=== PATIENT | female | born 1955 | race Caucasian/White ===

== ENCOUNTER 2017-03-29 14:43 | Outpatient (CLI) | payer SELFPAY | END 2017-03-29 14:44 | disposition critical access hospital (66) | LOC: EMS 14:43 | PROVIDERS: ATTEND Surgery | DX: R53.83 Other fatigue (principal); K62.5 Hemorrhage of anus and rectum | CPT/HCPCS: A0425; A0429 ==

== ENCOUNTER 2020-07-22 08:00 | Outpatient (CLI) | payer MEDICAID ==
[2020-07-22 15:02] LABS: BASOPHILS % (AUTO) 0.4 %; EOSINOPHILS # (AUTO) 0.1 10^3/uL (0.0-0.7); EOSINOPHILS % (AUTO) 2.2 %; LYMPHOCYTES # (AUTO) 1.7 10^3/uL (1.5-3.5); LYMPHOCYTES % (AUTO) 32.6 %; MEAN CORPUSCULAR HEMOGLOBIN 36.7 pg (27.0-31.0); MEAN CORPUSCULAR HGB CONC 34.3 g/dL (32.0-36.0); MEAN CORPUSCULAR VOLUME 106.8 fL (81.0-99.0); MEAN PLATELET VOLUME 11.3 fL (7.9-10.8); MONOCYTES # (AUTO) 0.7 10^3/uL (0.0-1.0); MONOCYTES % (AUTO) 13.2 %; NEUTROPHILS # (AUTO) 2.6 10^3/uL (1.5-6.6); NEUTROPHILS % (AUTO) 51.2 %; PLT - PLATELET COUNT 88 10^3/uL (130-450); RED BLOOD COUNT 4.09 10^6/uL (4.20-5.40); RED CELL DISTRIBUTION WIDTH 13.9 % (12.0-15.0); WHITE BLOOD COUNT 5.1 x10^3/uL (4.8-10.8)
[2020-07-22 15:17] LABS: CALCIUM 9.4 mg/dL (8.5-10.3); CREATININE 0.6 mg/dL (0.4-1.0)
== END 2020-07-22 23:59 | disposition home or self-care (01) ==
LOC: LAB.S 08:00
PROVIDERS: ATTEND Physician Assistant Medical
DX: I10 Essential (primary) hypertension (principal)
CPT/HCPCS: 36415; 80050

== ENCOUNTER 2020-09-10 11:27 | Outpatient (CLI) | payer MEDICARE, MEDICAID ==
[2020-09-10 14:59] LABS: BASOPHILS % (AUTO) 0.5 %; EOSINOPHILS # (AUTO) 0.2 10^3/uL (0.0-0.7); HCT - HEMATOCRIT 42.3 % (37.0-47.0); HGB - HEMOGLOBIN 14.2 g/dL (12.0-16.0); LYMPHOCYTES # (AUTO) 2.6 10^3/uL (1.5-3.5); LYMPHOCYTES % (AUTO) 44.6 %; MEAN CORPUSCULAR HEMOGLOBIN 35.1 pg (27.0-31.0); MEAN CORPUSCULAR HGB CONC 33.6 g/dL (32.0-36.0); MEAN CORPUSCULAR VOLUME 104.4 fL (81.0-99.0); MEAN PLATELET VOLUME 11.6 fL (7.9-10.8); MONOCYTES # (AUTO) 0.7 10^3/uL (0.0-1.0); MONOCYTES % (AUTO) 11.3 %; NEUTROPHILS # (AUTO) 2.4 10^3/uL (1.5-6.6); NEUTROPHILS % (AUTO) 40.4 %; PLT - PLATELET COUNT 128 10^3/uL (130-450); RED BLOOD COUNT 4.05 10^6/uL (4.20-5.40); RED CELL DISTRIBUTION WIDTH 12.9 % (12.0-15.0); WHITE BLOOD COUNT 5.9 x10^3/uL (4.8-10.8)
[2020-09-10 16:15] LABS: ALBUMIN 3.9 g/dL (3.2-5.5); ALKALINE PHOSPHATASE 57 IU/L (42-121); ALT ALANINE AMINOTRANSFERASE 17 IU/L (10-60); AST ASPARTATE AMINOTRANSFERASE 25 IU/L (10-42); BILIRUBIN,TOTAL 0.5 mg/dL (0.2-1.0); BUN - BLOOD UREA NITROGEN 19 mg/dL (6-20); CALCIUM 10.2 mg/dL (8.5-10.3); CARBON DIOXIDE - CO2 25 mmol/L (21-32); CHLORIDE 105 mmol/L (101-111); CHOL/HDL RATIO 4.4 (<4.4); CHOLESTEROL 223 mg/dL; CREATININE 0.7 mg/dL (0.4-1.0); GFR - MDRD 84 (>89); GLUCOSE 122 mg/dL (70-100); HDL CHOLESTEROL 51 mg/dL; LDL CHOLESTEROL,CALCULATED 149 mg/dL; LDL/HDL RATIO 2.9 (<4.4); POTASSIUM 3.8 mmol/L (3.5-5.0); SODIUM 141 mmol/L (135-145); TOTAL PROTEIN 7.8 g/dL (6.7-8.2); TRIGLYCERIDES 116 mg/dL; VLDL CHOLESTEROL 23 mg/dL
[2020-09-10 16:24] LABS: THYROID STIMULATING HORMONE 1.03 uIU/mL (0.34-5.60)
== END 2020-09-10 11:28 | disposition home or self-care (01) ==
LOC: LAB.S 11:27
PROVIDERS: ATTEND Registered Nurse
DX: I10 Essential (primary) hypertension (principal); Z72.0 Tobacco use; F32.9 Major depressive disorder, single episode, unspecified; F41.9 Anxiety disorder, unspecified
CPT/HCPCS: 36415; 80053; 80061; 83721; 84443; 85025

== ENCOUNTER 2020-11-24 08:26 | Outpatient (CLI) | payer MEDICARE, MEDICAID | END 2020-11-24 08:27 | disposition short-term general hospital (02) | LOC: EMS 08:26 | DX: R06.09 Other forms of dyspnea (principal); R11.2 Nausea with vomiting, unspecified; R07.89 Other chest pain; R05 Cough; R68.83 Chills (without fever) | CPT/HCPCS: A0425; A0429 ==

== ENCOUNTER 2022-07-11 08:00 | Outpatient (CLI) | payer MEDICARE, MEDICAID | END 2022-07-11 08:01 | disposition critical access hospital (66) | LOC: EMS 08:00 | DX: R06.02 Shortness of breath (principal) | CPT/HCPCS: A0425; A0427 ==

== ENCOUNTER 2022-07-11 08:33 | Emergency (ER) | payer MEDICARE, MEDICAID ==
[2022-07-11] MEDS ORDERED: ALBUTEROL NEB 2.5 MG/3 ML INH STA (08:47)
[2022-07-11] MEDS ORDERED: SODIUM CHLORIDE 0.9% 1,000 ML IV STA (08:47)
--- NOTE | 2022-07-11 08:54 | ED Physician Documentation ---
PD HPI DYSPNEA - Stated complaint Stated Complaint: SOA - History obtained from History obtained from: Patient, EMS - History of Present Illness Timing - onset: How many days ago (4) Timing - onset during: Rest Timing - duration: Days (4) Timing - details: Gradual onset, Still present Inciting event(s): URI Improved by: O2, Inhaler/neb, Rest Worsened by: Exertion Associated symptoms: Wheezing, Chest pain / discomfort Similar symptoms before: Diagnosis (COPD CHF) Recently seen: Not recently seen - Additional information Additional information: Trena Trujillo is a 66-year-old female who called the ambulance this morning when she developed increasing dyspnea for the past 4 days.She has a history of COPD and CHF with IHSS and mitral valve stenosis. She was last admitted into the hospital here in January 2022 with pneumonia and CHF. She left the hospital then with oxygen she is not currently using oxygen. She was picked up from her house unable to give adequate history she had a partner at the home who had called and there are no medications and no history available. The patient is in distress and unable to provide details of history. 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 : None HEENT: Other Psych: None Musculoskeletal: None Derm: None - Past Surgical History Past Surgical History: Yes /HORTICULTURAL AGENT: Hysterectomy HEENT: Cataracts - Present Medications Home Medications: Ambulatory Orders Medication Instructions Recorded Confirmed Ibuprofen [Advil] 200 mg PO Q6H PRN 03/30/17 01/25/22 Metoprolol Succinate 100 mg PO DAILY 01/25/22 01/25/22 Fluticasone/Salmeterol [Advair Hfa 8 gm IH BID #60 applic 01/27/22 115-21 Mcg Inhaler] Folic Acid 1 mg PO DAILY #0 tablet 01/27/22 Furosemide [Lasix] 20 mg PO MOWEFR #0 01/27/22 01/25/22 Ipratropium/Albuterol [Duoneb] 3 ml INH QID #120 pkt 01/27/22 Nebulizer Accessories [Adult 1 each MC QID #2 each 01/27/22 Aerosol Mask] Nebulizer and Compressor 1 each MC QID #1 each 01/27/22 [Compressor Nebulizer System] Nicotine [Nicotrol Ns] 10 mg NS TID #1 kit 01/27/22 guaiFENesin [Mucinex] 600 mg PO BID #30 tablet 01/27/22 levoFLOXacin [Levofloxacin] 750 mg PO DAILY #3 tablet 01/27/22 - Allergies Allergies/Adverse Reactions: Allergies Allergy/AdvReac Type Severity Reaction Status Date / Time No Known Drug Allergies Allergy Verified 01/24/22 13:21 - Social History Does the pt smoke?: Yes Smoking Status: Current every day smoker Does the pt drink ETOH?: Yes Does the pt have substance abuse?: No - Immunizations Immunizations are current?: Yes - POLST Patient has POLST: No PD ED PE NORMAL - Vitals Vital signs reviewed: Yes (tachy and hypoxic) - General General: Well developed/nourished, Other (66 y/o female struggling for breath will stop to answer questions with one word. She appears acutely aggitated ) - HEENT HEENT: Atraumatic, PERRL, EOMI - Neck Neck: Supple, no meningeal sign, No bony TTP - Cardiac Cardiac: Other (tachy with 3/6 holosystolic murmer at LSB) - Respiratory Respiratory: Other (diminished breath sounds effort to breath is strong) - Abdomen Abdomen: Soft, Non tender - Back Back: No CVA TTP, No spinal TTP - Derm Derm: Normal color, Warm and dry, No rash - Extremities Extremities: No deformity, No edema, Other (ankles are thick but without pitting .) - Neuro Neuro: Alert and oriented X 3, lumber grader 2-12 intact, No motor deficit, No sensory deficit, Normal speech Eye Opening: Spontaneous Motor: Obeys Commands Verbal: Oriented GCS Score: 15 - Psych Psych: Normal mood, Normal affect Results - Vitals Vitals: Vital Signs - 24 hr 07/11/22 07/11/22 07/11/22 08:54 09:01 09:18 Temperature 35.9 C L Heart Rate 120 H 117 H 111 H Respiratory 26 H 20 Rate Blood Pressure 121/80 113/72 O2 Saturation 71 L 100 07/11/22 07/11/22 07/11/22 09:33 09:48 09:52 Temperature Heart Rate 106 H 106 H 104 H Respiratory 26 H 32 H 24 Rate Blood Pressure 106/69 103/70 O2 Saturation 98 95 07/11/22 07/11/22 07/11/22 10:25 10:31 10:45 Temperature 34.5 C L 35.6 C L Heart Rate 118 H 109 H Respiratory 24 26 H Rate Blood Pressure 127/84 H 108/71 O2 Saturation 100 100 07/11/22 07/11/22 07/11/22 11:00 11:15 11:27 Temperature 35.8 C L 35.8 C L Heart Rate 106 H 105 H 98 Respiratory 26 H 20 Rate Blood Pressure 102/63 113/61 O2 Saturation 100 100 07/11/22 07/11/22 07/11/22 11:30 11:45 12:00 Temperature 35.8 C L 35.9 C L 35.9 C L Heart Rate 101 H 100 101 H Respiratory 20 24 19 Rate Blood Pressure 108/66 98/70 96/61 O2 Saturation 98 99 99 07/11/22 07/11/22 07/11/22 12:15 12:30 12:45 Temperature 36.1 C L 36.2 C L 36.4 C L Heart Rate 109 H 99 94 Respiratory 22 17 19 Rate Blood Pressure 134/86 H 105/67 101/67 O2 Saturation 98 100 99 07/11/22 07/11/22 07/11/22 13:00 13:15 13:30 Temperature 36.4 C L 36.4 C L 36.7 C Heart Rate 94 94 100 Respiratory 17 18 19 Rate Blood Pressure 106/63 101/60 114/70 O2 Saturation 100 100 100 07/11/22 07/11/22 07/11/22 13:45 14:00 14:15 Temperature 36.7 C 36.8 C 36.8 C Heart Rate 91 89 88 Respiratory 18 20 18 Rate Blood Pressure 105/64 90/58 L 92/59 L O2 Saturation 100 99 100 07/11/22 07/11/22 07/11/22 14:30 14:45 15:30 Temperature 36.8 C 36.8 C Heart Rate 90 93 109 H Respiratory 18 18 Rate Blood Pressure 124/64 113/68 O2 Saturation 100 99 07/11/22 16:15 Temperature Heart Rate 106 H Respiratory 21 Rate Blood Pressure 99/59 L O2 Saturation 100 Oxygen O2 Source [] Room air O2 Source [] Room air O2 Source BIPAP - EKG (time done) 0841 Rate: Rate (enter#) (123) Rhythm: Other (unable to determine atrial focus doubt aflutter) Ischemia: Q waves, Other (ST depression and T wave inversions in limb leads ) Compare to prior EKG: Changed from prior EKG (SPT 01-24-22 rate has increased) Computer interpretation: Disagree with computer (I do not see evidence of atrial flutter) 0914 Rate: Rate (enter#) (118) Rhythm: Sinus tachycardia Ischemia: Q waves Compare to prior EKG: Unchanged from prior EKG (SPT earlier today no sig main es) Computer interpretation: Agree with computer - Labs Labs: Laboratory Tests 07/11/22 07/11/22 07/11/22 08:40 08:45 08:45 WBC 13.4 H RBC 2.99 L Hgb 10.1 L Hct 32.1 L MCV 107.4 H MCH 33.8 H MCHC 31.5 L RDW 15.9 H Plt Count 248 MPV 10.4 Neut # (Auto) 9.0 H Lymph # (Auto) 2.8 [place] # (Auto) 1.2 H Eos # (Auto) 0.2 Baso # (Auto) 0.1 Absolute Nucleated RBC 0.03 Nucleated RBC % 0.2 Bld Gas Analysis Time Sample Site ABG pH ABG pCO2 ABG pO2 ABG HCO3 ABG Total CO2 ABG O2 Saturation ABG Base Excess Álvaro Test VBG pH VBG pCO2 VBG pO2 VBG HCO3 VBG Total CO2 VBG O2 Saturation VBG Base Excess O2 Delivery Device FiO2 EPAP IPAP Sodium 139 Potassium 3.2 L Chloride 103 Carbon Dioxide 27 Anion Gap 9.0 BUN 15 Creatinine 0.7 Estimated GFR (MDRD) 83 L Glucose 228 H Lactic Acid Calcium 8.7 Magnesium 1.3 L Total Bilirubin 1.0 AST 29 ALT 14 Alkaline Phosphatase 62 Troponin I High Sens B-Natriuretic Peptide Total Protein 7.8 Albumin 4.1 Globulin 3.7 Albumin/Globulin Ratio 1.1 Lipase 29 Nasal Adenovirus (PCR) NOT DETECTED Nasal B. parapertussis DNA (PCR) NOT DETECTED Nasal Coronavir 229E PCR NOT DETECTED Nasal Coronavir HKU1 PCR NOT DETECTED Nasal Coronavir NL63 PCR NOT DETECTED Nasal Coronavir OC43 PCR NOT DETECTED Nasal Enterovir/Rhinovir PCR NOT DETECTED Nasal Influenza B PCR NOT DETECTED Nasal Influenza A PCR NOT DETECTED Nasal Parainfluen 1 PCR NOT DETECTED Nasal Parainfluen 2 PCR NOT DETECTED Nasal Parainfluen 3 PCR NOT DETECTED Nasal Parainfluen 4 PCR NOT DETECTED Nasal RSV (PCR) NOT DETECTED Nasal B.pertussis DNA PCR NOT DETECTED Nasal C.pneumoniae (PCR) NOT DETECTED Felix Human Metapneumo PCR NOT DETECTED Nasal M.pneumoniae (PCR) NOT DETECTED Nasal SARS-CoV-2 (PCR) NOT DETECTED Stl Occult Blood (IFOB) Ethyl Alcohol < 5.0 07/11/22 07/11/22 07/11/22 08:45 08:45 08:45 WBC RBC Hgb Hct MCV MCH MCHC RDW Plt Count MPV Neut # (Auto) Lymph # (Auto) [place] # (Auto) Eos # (Auto) Baso # (Auto) Absolute Nucleated RBC Nucleated RBC % Bld Gas Analysis Time Sample Site ABG pH ABG pCO2 ABG pO2 ABG HCO3 ABG Total CO2 ABG O2 Saturation ABG Base Excess Álvaro Test VBG pH 7.166 L VBG pCO2 70.2 H VBG pO2 43.5 VBG HCO3 24.8 VBG Total CO2 27.0 VBG O2 Saturation 66.5 VBG Base Excess -4.7 L O2 Delivery Device FiO2 EPAP IPAP Sodium Potassium Chloride Carbon Dioxide Anion Gap BUN Creatinine Estimated GFR (MDRD) Glucose Lactic Acid 2.1 Calcium Magnesium Total Bilirubin AST ALT Alkaline Phosphatase Troponin I High Sens B-Natriuretic Peptide 314 H Total Protein Albumin Globulin Albumin/Globulin Ratio Lipase Nasal Adenovirus (PCR) Nasal B. parapertussis DNA (PCR) Nasal Coronavir 229E PCR Nasal Coronavir HKU1 PCR Nasal Coronavir NL63 PCR Nasal Coronavir OC43 PCR Nasal Enterovir/Rhinovir PCR Nasal Influenza B PCR Nasal Influenza A PCR Nasal Parainfluen 1 PCR Nasal Parainfluen 2 PCR Nasal Parainfluen 3 PCR Nasal Parainfluen 4 PCR Nasal RSV (PCR) Nasal B.pertussis DNA PCR Nasal C.pneumoniae (PCR) Felix Human Metapneumo PCR Nasal M.pneumoniae (PCR) Nasal SARS-CoV-2 (PCR) Stl Occult Blood (IFOB) Ethyl Alcohol 07/11/22 07/11/22 07/11/22 08:45 08:53 09:17 WBC RBC Hgb Hct MCV MCH MCHC RDW Plt Count MPV Neut # (Auto) Lymph # (Auto) [place] # (Auto) Eos # (Auto) Baso # (Auto) Absolute Nucleated RBC Nucleated RBC % Bld Gas Analysis Time 0926 Sample Site RIGHT RADIAL ABG pH 7.30 L ABG pCO2 47 H ABG pO2 93 ABG HCO3 22.2 ABG Total CO2 23.6 ABG O2 Saturation 96 ABG Base Excess -4.3 L Álvaro Test POSITIVE VBG pH VBG pCO2 VBG pO2 VBG HCO3 VBG Total CO2 VBG O2 Saturation VBG Base Excess O2 Delivery Device BiPAP FiO2 40.00 EPAP 5 IPAP 20 Sodium Potassium Chloride Carbon Dioxide Anion Gap BUN Creatinine Estimated GFR (MDRD) Glucose Lactic Acid Calcium Magnesium Total Bilirubin AST ALT Alkaline Phosphatase Troponin I High Sens 17.0 H* B-Natriuretic Peptide Total Protein Albumin Globulin Albumin/Globulin Ratio Lipase Nasal Adenovirus (PCR) Nasal B. parapertussis DNA (PCR) Nasal Coronavir 229E PCR Nasal Coronavir HKU1 PCR Nasal Coronavir NL63 PCR Nasal Coronavir OC43 PCR Nasal Enterovir/Rhinovir PCR Nasal Influenza B PCR Nasal Influenza A PCR Nasal Parainfluen 1 PCR Nasal Parainfluen 2 PCR Nasal Parainfluen 3 PCR Nasal Parainfluen 4 PCR Nasal RSV (PCR) Nasal B.pertussis DNA PCR Nasal C.pneumoniae (PCR) Felix Human Metapneumo PCR Nasal M.pneumoniae (PCR) Nasal SARS-CoV-2 (PCR) Stl Occult Blood (IFOB) POSITIVE A Ethyl Alcohol 07/11/22 11:13 WBC RBC Hgb Hct MCV MCH MCHC RDW Plt Count MPV Neut # (Auto) Lymph # (Auto) [place] # (Auto) Eos # (Auto) Baso # (Auto) Absolute Nucleated RBC Nucleated RBC % Bld Gas Analysis Time 1119 Sample Site RIGHT RADIAL ABG pH 7.24 L ABG pCO2 54 H ABG pO2 79 L ABG HCO3 22.5 ABG Total CO2 24.2 ABG O2 Saturation 93 L ABG Base Excess -5.0 L Álvaro Test POSITIVE VBG pH VBG pCO2 VBG pO2 VBG HCO3 VBG Total CO2 VBG O2 Saturation VBG Base Excess O2 Delivery Device BiPAP FiO2 40.00 EPAP 5 IPAP 18 Sodium Potassium Chloride Carbon Dioxide Anion Gap BUN Creatinine Estimated GFR (MDRD) Glucose Lactic Acid Calcium Magnesium Total Bilirubin AST ALT Alkaline Phosphatase Troponin I High Sens B-Natriuretic Peptide Total Protein Albumin Globulin Albumin/Globulin Ratio Lipase Nasal Adenovirus (PCR) Nasal B. parapertussis DNA (PCR) Nasal Coronavir 229E PCR Nasal Coronavir HKU1 PCR Nasal Coronavir NL63 PCR Nasal Coronavir OC43 PCR Nasal Enterovir/Rhinovir PCR Nasal Influenza B PCR Nasal Influenza A PCR Nasal Parainfluen 1 PCR Nasal Parainfluen 2 PCR Nasal Parainfluen 3 PCR Nasal Parainfluen 4 PCR Nasal RSV (PCR) Nasal B.pertussis DNA PCR Nasal C.pneumoniae (PCR) Felix Human Metapneumo PCR Nasal M.pneumoniae (PCR) Nasal SARS-CoV-2 (PCR) Stl Occult Blood (IFOB) Ethyl Alcohol - Rads (name of study) chest Radiology: Prelim report reviewed (Impression: Borderline cardiac with findings of moderate interstitial and alveolar edema.), EMP read indepedently Procedures - IVC sono (time) 0848 Bedside IVC sono: IVC measures (cm) (0.66), Significant dehydration (est 3 liter deficit) PD Medical Decision Making - ED course Complexity details: reviewed old records, reviewed results, re-evaluated patient, considered differential, d/w patient Reviewed Lab Results: I ordered and reviewed a complete blood count including a white blood cell count that was elevated at 13.4 Possibly indicating presence of infection or excessive inflammation. The patient's hemoglobin and hematocrit were both low at 10.1 and 32.1 and this is similar to what she has had most recently with a hemoglobin Social Determinants of Health: Patient is currently living in [place] her children are living in [place]. ED course: 66-year-old female with a history of COPD and CHF with a tight mitral valve and IHSS, presents to the emergency department this morning with respiratory failure consistent with exacerbation of COPD and CHF. I did not appreciate peripheral edema but the patient actually has pitting to her buttocks. Despite this her inferior vena cava on interrogation with POCUS shows a 6.6 mm vessel. She appears volume depleted with signs of pulmonary edema on exam and CXR. Lasix is not administered. She is administered IV saline. She is placed on BIPAP. She is very uncomfortable and appears aggitated. She is administered morphine 2mg IVP. She has evidence of GI bleeding and stool is + for occult blood. Her H&H are just shy of where she was in January of last year and I do not think this is blood loss as the primary cause of her respiratory failure. I reviewed the case with our hospitalist for admission and she requested we transfer the patient to a facility with a tissue coordinator as this patient has a complicated case requiring intensive management and likely a procedure for resolution. The hospitalist felt that the combination of mitral stenosis and IHSS with volume depletion and GI bleeding was in excess of what we would handle here. I called for a bed available with a tissue coordinator and we found that [facility] in [place] were able to accept our patient in transfer although they are still waiting for bed to actually clear. I talked to Dr. Cole allergist/immunologist at [facility] in [place] and she recommended we continue treatment as previously and to make certain we provided enough DuoNeb. The patient has started to diurese after receiving 40 mg of Lasix intravenously. The patient continues to have oxygen requirement and BiPAP requirement and the flight crew shows up to transfer the patient to [facility] and the patient refuses transfer. She is able to get her children on the telephone both indicate that they evidently had a long conversation with their mother about her end-of-life needs and she would like to be in hospice. I presented to the emergency department after her refusal and discussed this with the patient and her family on the telephone and despite my attempting to persuade the patient to continue with treatment that may potentially improve her life she has refused further treatment. At shift change her care is turned over to Dr. Ni with the intention of either admission to the hospital for comfort care or continued treatment in the emergency department until hospice can be established. - Consults Consults: Consulted (name) (Shaysuzievenita ), Discussed case with, Request benefits consultant evaluate patient, Other (requested we transfer the patient to a hospital capable of the care required. ) - Critical Care Time(min): 50 Time Includes: Direct patient care, Review records, Reassess patient, Document care, Coordinate care, Medical consult, Family consult for tx dec Data interpretation: Labs, Pulse ox, ABG, CXR, Prior EKG Departure - Departure Clinical Impression: Acute respiratory failure with hypoxia, Pulmonary edema cardiac cause, COPD exacerbation, Lower gastrointestinal bleed
[2022-07-11] MEDS ORDERED: MORPHINE 2 MG/ML CARPUJECT IVP STA ×4 (08:59→18:35)
[2022-07-11] MEDS ORDERED: MAGNESIUM SULFATE 1 GM/2 ML VIAL IVP STA (08:59)
[2022-07-11 09:05] LABS: VBG BASE EXCESS -4.7 mmol/L (-2 - +2); VBG HCO3 24.8 mmol/L (23-28); VBG OXYGEN SATURATION 66.5 % (60-80); VBG PCO2 70.2 mmHg (41-51); VBG PO2 43.5 mmHg (25-47)
--- NOTE | 2022-07-11 09:06 | XRAY Report ---
PROCEDURE: Chest 1 View X-Ray INDICATIONS: Shortness of breath TECHNIQUE: One view of the chest was acquired. COMPARISON: 03/30/2017, 01/24/2022 FINDINGS: Surgical changes and devices: None. Lungs and pleura: Diffusely increased interstitial opacities in both lungs with developing mild airs pace opacity. Cephalization of pulmonary vessels. Mediastinum: Borderline cardiomegaly. Bones and chest wall: No suspicious bony lesions. Overlying soft tissues appear unremarkable. IMPRESSION: Borderline cardiac with findings of moderate interstitial and alveolar edema. Reviewed by: Heber Palacios MD on 07/11/2022 9:05 AM [facility] Approved by: Heber Palacios MD on 07/11/2022 9:05 AM PST Station ID: [id number]
[2022-07-11] MEDS ORDERED: MAGNESIUM SULFATE 2 GRAM 2 GM/50 ML BAG IV ONE ×2 (09:07→09:40)
[2022-07-11 09:09] LABS: VBG PH 7.166 (7.31-7.41)
[2022-07-11 09:12] LABS: BASOPHILS # (AUTO) 0.1 10^3/uL (0.0-0.1); BASOPHILS % (AUTO) 0.6 %; EOSINOPHILS # (AUTO) 0.2 10^3/uL (0.0-0.7); EOSINOPHILS % (AUTO) 1.5 %; HCT - HEMATOCRIT 32.1 % (37.0-47.0); HGB - HEMOGLOBIN 10.1 g/dL (12.0-16.0); LYMPHOCYTES # (AUTO) 2.8 10^3/uL (1.5-3.5); LYMPHOCYTES % (AUTO) 20.6 %; MEAN CORPUSCULAR HEMOGLOBIN 33.8 pg (27.0-31.0); MEAN CORPUSCULAR HGB CONC 31.5 g/dL (32.0-36.0); MEAN CORPUSCULAR VOLUME 107.4 fL (81.0-99.0); MEAN PLATELET VOLUME 10.4 fL (7.9-10.8); MONOCYTES # (AUTO) 1.2 10^3/uL (0.0-1.0); MONOCYTES % (AUTO) 8.7 %; NEUTROPHILS % (AUTO) 67.1 %; NRBC ABSOLUTE COUNT (AUTO) 0.03 x10^3/uL; NUCLEATED RED BLOOD CELLS AUTO 0.2 /100WBC; PLT - PLATELET COUNT 248 10^3/uL (130-450); RED BLOOD COUNT 2.99 10^6/uL (4.20-5.40); RED CELL DISTRIBUTION WIDTH 15.9 % (12.0-15.0); WHITE BLOOD COUNT 13.4 x10^3/uL (4.8-10.8)
[2022-07-11 09:19] LABS: FECAL OCCULT BLOOD (FIT) POSITIVE (NEGATIVE)
[2022-07-11 09:24] LABS: ALBUMIN 4.1 g/dL (3.2-5.5); ALBUMIN/GLOBULIN RATIO 1.1 (1.0-2.2); ALKALINE PHOSPHATASE 62 IU/L (42-121); ALT ALANINE AMINOTRANSFERASE 14 IU/L (10-60); AST ASPARTATE AMINOTRANSFERASE 29 IU/L (10-42); BUN - BLOOD UREA NITROGEN 15 mg/dL (6-20); CALCIUM 8.7 mg/dL (8.5-10.3); CARBON DIOXIDE - CO2 27 mmol/L (21-32); CHLORIDE 103 mmol/L (101-111); CREATININE 0.7 mg/dL (0.4-1.0); ETOH - ETHANOL < 5.0 mg/dL; GFR - MDRD 83 (>89); GLUCOSE 228 mg/dL (70-100); LIPASE 29 U/L (22-51); MAGNESIUM 1.3 mg/dL (1.7-2.8); POTASSIUM 3.2 mmol/L (3.5-5.0); SODIUM 139 mmol/L (135-145); TOTAL PROTEIN 7.8 g/dL (6.7-8.2)
[2022-07-11 09:29] LABS: ABG BASE EXCESS -4.3 mmol/L (-2.0-3.0); ABG HCO3 22.2 mmol/L (22.0-26.0); ABG OXYGEN SATURATION 96 % (94-98); ABG PCO2 47 mmHg (34-45); ABG PO2 93 mmHg (80-100); ABG TCO2 23.6 MMOL/L (21.0-29.0); ALLEN TEST POSITIVE
[2022-07-11] MEDS ORDERED: LORazepam 2 MG/ML VIAL IVP STA ×2 (09:30→18:08)
[2022-07-11] MEDS ORDERED: LORazepam 2 MG/ML VIAL ONE (09:32)
[2022-07-11] MEDS ORDERED: cefTRIAXone 1 GM in SODIUM CHLORIDE 0.9% MINIBAG 100 ML IV STA (09:44)
[2022-07-11] MEDS ORDERED: AZITHROMYCIN INJ 500 MG in SODIUM CHLORIDE 0.9% 250 ML IV STA (09:44)
[2022-07-11 10:22] LABS: B. PARAPERTUSSIS- RESP PCR PAN NOT DETECTED; B. PERTUSSIS- RESP PCR PANEL NOT DETECTED; C. PNEUMONIAE- RESP PCR PANEL NOT DETECTED; CORONAVIRUS 229E-RESP PCR NOT DETECTED; CORONAVIRUS HKU1-RESP PCR NOT DETECTED; CORONAVIRUS NL63-RESP PCR NOT DETECTED; CORONAVIRUS OC43-RESP PCR NOT DETECTED; HUMAN METAPNEUMOVIRUS NOT DETECTED; INFLUENZA A- RESP PCR PANEL NOT DETECTED; INFLUENZA B - RESP PCR PANEL NOT DETECTED; M. PNEUMONIAE- RESP PCR PANEL NOT DETECTED; PARAINFLUENZA VIRUS 1 NOT DETECTED; PARAINFLUENZA VIRUS 2 NOT DETECTED; PARAINFLUENZA VIRUS 3 NOT DETECTED; PARAINFLUENZA VIRUS 4 NOT DETECTED; RHINOVIRUS/ENTEROVIRUS NOT DETECTED; RSV- RESP PCR PANEL NOT DETECTED; SARS-CoV-2 -RESP PCR PANEL NOT DETECTED
[2022-07-11 11:21] LABS: ABG HCO3 22.5 mmol/L (22.0-26.0); ABG OXYGEN SATURATION 93 % (94-98); ABG PCO2 54 mmHg (34-45); ABG PH 7.24 (7.35-7.45); ABG PO2 79 mmHg (80-100); ABG TCO2 24.2 MMOL/L (21.0-29.0)
[2022-07-11 11:22] LABS: ALLEN TEST POSITIVE
--- NOTE | 2022-07-11 11:54 | CONSULTATION NOTE ---
Referring Provider Name of Referring Provider:: Dr Johnson Consult Date: 07/11/22 Chief Complaint - Chief Complaint Chief Complaint: Shortness of air History of Present Illness - History of Present Illness HPI Comment/Other: This is a 66-year-old white female with a history of severe COPD, and has a history of IHSS and mitral stenosis. She was admitted here in January 2022 for pneumonia, COPD exacerbation and CHF exacerbation which we found then was due to severe mitral stenosis and IHSS with very small LV cavity seen on Echo. On day of discharge her oximetry walk test revealed that she needed oxygen and she was ordered to be on 2 L of oxygen at rest and 3 L of oxygen with activity. She was advised to see a Editor Managing Director. The patient presents today with very sketchy HPI details because of her severe respiratory distress. She has been SOB for 4 days. She has not been using ox ygen. She continues to smoke. We are not sure if she takes any medications but she was holding a hand-held inhaler. She was put on a BiPAP machine in the ED and has had some improvement in respiratory distress. When I requestioned her, it is hard to understand her answers, while being on the BiPAP mask. She does say that an appointment to Cardiology is still pending, she is waiting for that in August 2022 and cannot remember the name of the Editor Managing Director. 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 There is a remote history of alcoholism. - POLST Patient has POLST: No Meds/Allgy - Home Medications Home Medications: Ambulatory Orders Medication Instructions Recorded Confirmed Ibuprofen [Advil] 200 mg PO Q6H PRN 03/30/17 01/25/22 Metoprolol Succinate 100 mg PO DAILY 01/25/22 01/25/22 Fluticasone/Salmeterol [Advair Hfa 8 gm IH BID #60 applic 01/27/22 115-21 Mcg Inhaler] Folic Acid 1 mg PO DAILY #0 tablet 01/27/22 Furosemide [Lasix] 20 mg PO MOWEFR #0 01/27/22 01/25/22 Ipratropium/Albuterol [Duoneb] 3 ml INH QID #120 pkt 01/27/22 Nebulizer Accessories [Adult 1 each MC QID #2 each 01/27/22 Aerosol Mask] Nebulizer and Compressor 1 each MC QID #1 each 01/27/22 [Compressor Nebulizer System] Nicotine [Nicotrol Ns] 10 mg NS TID #1 kit 01/27/22 guaiFENesin [Mucinex] 600 mg PO BID #30 tablet 01/27/22 levoFLOXacin [Levofloxacin] 750 mg PO DAILY #3 tablet 01/27/22 - Allergies Allergies/Adverse Reactions: Allergies Allergy/AdvReac Type Severity Reaction Status Date / Time No Known Drug Allergies Allergy Verified 01/24/22 13:21 Review of Systems - Respiratory Respiratory: reports: Orthopnea, SOB at rest, SOB with exertion - All Other Systems All Other Systems: reports: Other (No other detailed ROS could be obtained since she is in respiratory distress, wearing a BiPAP mask, cannot easily communicate or be understood.) Exam - Vital Signs Vital Signs: Vital Signs x48h Temp Pulse Resp BP Pulse Ox 07/11/22 11:30 35.8 C L 101 H 20 108/66 98 07/11/22 11:27 98 07/11/22 11:15 35.8 C L 105 H 20 113/61 100 07/11/22 11:00 35.8 C L 106 H 26 H 102/63 100 07/11/22 10:45 35.6 C L 109 H 26 H 108/71 100 07/11/22 10:31 118 H 24 127/84 H 100 07/11/22 10:25 34.5 C L 07/11/22 09:52 104 H 24 07/11/22 09:48 106 H 32 H 103/70 95 01/24/23 09:33 106 H 26 H 106/69 98 07/11/22 09:18 111 H 20 113/72 100 07/11/22 09:01 35.9 C L 117 H 26 H 121/80 71 L 07/11/22 08:54 120 H - Physical Exam General Appearance: positive: Moderate distress (wearing BIPAP mask suppl O2), Other (Pale) Eyes Bilateral: positive: Normal inspection ENT: positive: Dry mucous membranes, Other (Wearing a BiPAP mask) Neck: positive: Nml inspection Respiratory: positive: Other (In no audible breath sounds over the pressure of inhalation and exhalation sounds, made by the BiPAP machine) Cardiovascular: positive: Regular rate & rhythm, Other (distant heart sounds, cannot be heard over ther BIPAP machine) Abdomen: positive: Non-tender, No distention Extremities: positive: Other (4+ pitting edema to the upper thighs) Neurologic/Psychiatric: positive: Motor nml Conclusion/Plan - Problem List (1) Acute respiratory failure with hypoxia Conclusion/Plan: Chest x-ray is read as having pulmonary edema. I suspect she also has a COPD exacerbation. Patient had PFTs done here at her last hospitalization in January 2022 and was diagnosed with severe COPD. She continues to smoke. It is unclear why she normal longer uses home O2. Recommendations: Continue supplemental O2, currently using BiPAP, weaning down as tolerated with RT assistance. Would also recommend starting on scheduled Duonebs and Pulmicort nebulized And consider using empiric iv Solumedrol 40-80 mg iv TID. (2) Pulmonary edema cardiac cause Conclusion/Plan: This patient has a unique combination of IHSS plus mitral stenosis causing her CHF. Her pulmonary edema is not from systolic heart failure. She was given iv saline when her POCUS showed low intravascular volume with a small IVC. But to give IV fluids will not benefit her, since iv fluids given to this mitral stenosis pt will add to more pulmonary edema. Another factor adding to her SOB is her anemia and her heme positive stool. This patient would not be cleared to undergo conscious sedation here to have an EGD, given her severe COPD and severe mitral stenosis, which are causing this current acute respiratory exacerbation with hypoxia. Recommendations: This patient has an extremely narrow proper volume status. If she gets iv fluids and is volume overloaded, as she is currently, she will get worsened leg edema and pulmonary edema. The patient currently needs diuresis. If she is over diuresed, she will continue to get worse LV cavity constriction and a worse IHSS gradient. For these reasons, this patient is considered excessively complex to be managed by the Hospitalist team at this [facility] hospital, with no available specialists. I recommend transferring this patient to a tertiary care center that has Cardiology and Pulmonary specialists available for further management. This was discussed with Dr. Johnson, the ED provider. - Lab Results Fish Bones: 07/11/22 08:45 07/11/22 08:45 - Diagnostic Imaging Results Diagnostic Imaging Results: positive: Final report reviewed
[2022-07-11] MEDS ORDERED: FUROSEMIDE 40 MG/4 ML VIAL IVP STA (13:00)
[2022-07-11] MEDS ORDERED: POTASSIUM CHLOR 10 MEQ/100 ML 10 MEQ/100 ML BAG IV ONE (13:52)
--- NOTE | 2022-07-11 17:59 | ED Physician Documentation ---
ED Addendum - Addendum Addendum: 07/11/22 17:[address] Payton at 3 PM shift change. Briefly this is a 66-year-old woman with subaortic stenosis and severe mitral stenosis with CHF and COPD with respiratory failure. Originally the plan had been for her to go to [place] for specialty care, but prior to transfer the patient stated she wanted comfort care only. She is lucid to make this decision and I clarified with her and her niece at the bedside. She was given 4 mg of morphine for air hunger. She would like to stay on BiPAP for now. I discussed the case with Dr. Bailey who notes that the patient does not fit admission criteria and I discussed the case with Dr. Briones for potential hospice admission and they will try to admit her tomorrow. There is no criteria for GIP admission. As such she is boarding in the emergency department on comfort care pending hospice evaluation tomorrow.
[2022-07-11] MEDS ORDERED: ONDANSETRON 4 MG/2 ML VIAL IVP STA (18:35)
[2022-07-11] MEDS ORDERED: ONDANSETRON 4 MG/2 ML VIAL IVP PRN (18:37)
[2022-07-11] MEDS: MORPHINE 2 MG/ML CARPUJECT IVP PRN (21:55)
[2022-07-11] MEDS: LORazepam 2 MG/ML VIAL IVP PRN (23:19)
[2022-07-12] MEDS: LORazepam 2 MG/ML VIAL IVP PRN ×6 (03:10→16:10)
[2022-07-12] MEDS: MORPHINE 2 MG/ML CARPUJECT IVP PRN ×6 (03:10→16:10)
--- NOTE | 2022-07-12 12:25 | ED Physician Documentation ---
ED Addendum - Addendum Addendum: 07/12/22 12:23 I met briefly with the patient's family in the room and examined the patient. She is resting comfortably at this time. The family member states she has been doing well with regular dosing of pain medicine and benzodiazepine to help with anxiety and the discomfort of the BiPAP. Her oxygenation is holding adequate with the BiPAP as is her vital signs. Family member present states other family members were arriving from out of state and were arriving at the airport approximately 1030 this morning and then had to get from the airport to hear. Anticipation was probably still about 3 [address] I talked with Dr[address] Calderon who is director of hospice. Dr. Calderon's intention is to meet with the family in the early to mid afternoon and to examine the patient at that time. Consideration is at that point to discontinue the BiPAP once the shared, and goals of the family are discussed and confirmed and also a backup plan in place for home care should the patient not have a prompt decline with discontinuing the BiPAP. Consideration should be to have a alternative plan in place and that would be Dr. Calderon's intention. Question would be whether the patient would be ill enough to qualify for GIP bed at that point versus setting up home hospice promptly should there not be a prompt decline.
--- NOTE | 2022-07-12 15:52 | ED Physician Documentation ---
ED Addendum - Addendum Addendum: 07/12/22 15:52 Seen by hospice and she is being discharged to inpatient hospice.
[2022-07-12 16:07] VITALS: BP 111/69
== END 2022-07-12 16:32 | disposition home or self-care (01) ==
LOC: EDUNIT# → ED 08:33
DX: J44.1 Chronic obstructive pulmonary disease with (acute) exacerbation (principal); J96.01 Acute respiratory failure with hypoxia; K92.2 Gastrointestinal hemorrhage, unspecified; I50.1 Left ventricular failure, unspecified; F17.200 Nicotine dependence, unspecified, uncomplicated
CPT/HCPCS: 36415; 36600; 71045; 80053; 82274; 82803; 83605; 83690; 83735; 83880; 84484; 85025; 87040; 87633; 93005; 94640; 94660; 96365; 96366; 96367; 96368; 96375; 96376; 99285; 99291; G0480; J2060; 80320

== ENCOUNTER 2022-07-12 14:04 | Inpatient (IN) | payer OTHER ==
[2022-07-12] MEDS ORDERED: ATROPINE 0.4 MG/ML VIAL IVP PRN (16:00)
[2022-07-12] MEDS ORDERED: PETROLATUM WHITE 5 GM PACKET TOP PRN (16:00)
[2022-07-12] MEDS ORDERED: MIN OIL/DIMETHICON/COCONUT OIL 92 GM TUBE TOP PRN (16:00)
[2022-07-12] MEDS ORDERED: CARBOXYMETHYLCELLULOSE OPHTH DROPS EACHEYE PRN (16:00)
[2022-07-12] MEDS ORDERED: ACETAMINOPHEN 325 MG TABLET PO PRN (16:00)
[2022-07-12] MEDS: LORazepam 2 MG/ML VIAL IVP PRN ×2 (17:17→19:02)
[2022-07-12] MEDS: MORPHINE 2 MG/ML CARPUJECT IVP PRN ×3 (17:17→19:54)
--- NOTE | 2022-07-12 20:18 | HISTORY & PHYSICAL EXAMINATION ---
Chief Complaint - Chief Complaint Chief Complaint: 66 yo F w/COPD, chronic hypoxic resp fail. and HCM presented to ED w/SOB History of Present Illness - Admitted From Admitted From:: ER - History of Present Illness HPI Comment/Other: Pt has chronic hypoxic resp failure on continuous O2 at home (neither pt nor family is certain as to the flow rate), COPD, severe mitral stenosis and Hypertrophic CM who was brought into the ED via EMS w/SOB. Pt had prior hospitalization 02/06 for resp failure/COPD/CHF exac. Since then, she has been declining. More recently, she reportedly began giving away her possessions as she felt she was declining. A neighbor went to check on her yesterday and found her to be in severe distress. EMS was called and she was transported to the ED. She was found to be hypothermic, hypoxic in the 70s, mottled and is severe respiratory distress. She was placed on BIPAP. CXR showed pulmonary edema/CHF. She received Rocephin/Azithro/Lasix 40 mg IV. Hospitalist consult was obtained and it was recommended pt be transferred off [facility] [facility] to a higher level of care. Plans were in place for pt to transfer to [place]. However, she became more lucid and expressed the desire not to transfer and for conservative care. Hospitalist was called again but felt pt did not meet admission criteria. Hospice MD consult was requested this am. Pt's family was en route this am and consult was arranged for this afternoon. Pt has been BIPAP dependent since admisison. Her niece gives most history as she has been present since pt got to ED. She notes that pt has had brief breaks off of BiPAP but only long enough for her to eat ice chips and to reposition her mask. She appears sob during that time. Pt has c/o'd some left sided chest pain and was noted to have an elevated troponin in the ED as well. She presently c/o ongoing SOB. She confirms that she wants to remain in the hospital for comfort care. Niece notes that her symptoms have been fairly well controlled w/morphine and l orazepam, but does best when meds are given at the same time. History - Past Medical History Cardiovascular: reports: Congestive heart failure, Valve disorder Respiratory: reports: COPD GI: reports: GI bleed [employer]ENT: reports: Uterine cancer HEENT: reports: Other MRSA Hx?: No - Past Surgical History /[employer]ENT: reports: Hysterectomy HEENT: reports: Cataracts - Family & Social History Family History Comment/Other: Unable to be obtained due to patient's respiratory distress, she is currently on a BiPAP mask Living Situation: With friend(s) Social History Notes: She continues to smoke but unclear how much. There is a remote history of alcoholism. - Substance History Use: Uses substance without health or social issues: Tobacco Tobacco Details: Cigarettes - POLST Patient has POLST: No POLST Status: DNR Meds/Allgy - Home Medications Home Medications: Ambulatory Orders Medication Instructions Recorded Confirmed Ibuprofen [Advil] 200 mg PO Q6H PRN 03/30/17 01/25/22 Metoprolol Succinate 100 mg PO DAILY 01/25/22 01/25/22 Fluticasone/Salmeterol [Advair Hfa 8 gm IH BID #60 applic 01/27/22 115-21 Mcg Inhaler] Folic Acid 1 mg PO DAILY #0 tablet 01/27/22 Furosemide [Lasix] 20 mg PO MOWEFR #0 01/27/22 01/25/22 Ipratropium/Albuterol [Duoneb] 3 ml INH QID #120 pkt 01/27/22 Nebulizer Accessories [Adult 1 each MC QID #2 each 01/27/22 Aerosol Mask] Nebulizer and Compressor 1 each MC QID #1 each 01/27/22 [Compressor Nebulizer System] Nicotine [Nicotrol Ns] 10 mg NS TID #1 kit 01/27/22 guaiFENesin [Mucinex] 600 mg PO BID #30 tablet 01/27/22 levoFLOXacin [Levofloxacin] 750 mg PO DAILY #3 tablet 01/27/22 - Allergies Allergies/Adverse Reactions: Allergies Allergy/AdvReac Type Severity Reaction Status Date / Time No Known Drug Allergies Allergy Verified 01/24/22 13:21 Review of Systems - Other Findings Other Findings: Unable to complete d/t dyspnea/bipap dependence Exam - Vital Signs Vital Signs: Vital Signs x48h Temp Pulse Resp BP Pulse Ox O2 Flow Rate 07/12/22 17:15 3 07/12/22 16:53 36.7 C 105 H 16 102/57 L 98 - Physical Exam General Appearance: positive: Alert, Moderate distress, Anxious Eyes Bilateral: positive: Normal inspection ENT: positive: ENT inspection nml Neck: positive: Nml inspection, No JVD, Trachea midline Respiratory: positive: Other (tachypneic, bipap in place, diffusely diminished, no wheezes/rhonchi/crackles) Cardiovascular: positive: Regular rate & rhythm, No gallop Abdomen: positive: Non-tender, No organomegaly, Nml bowel sounds, No distention Skin: positive: Color nml, No rash, Warm, Dry Extremities: positive: Other (1-2+ edema BLE, lacy rash/discoloration (?mottling vs old burn) to LLE) Neurologic/Psychiatric: positive: Other (alert, oriented to self, situation) Conclusion/Plan - Other Other Results/Comments: 1. Acute on chronic hypoxic resp failure 2. Chronic CHF w/acute exacerbation 3. COPD 4. Severe mitral stenosis 5. Hypertrophic cardiomyopathy 6. Hyperglycemia 7. Elevated troponin/chest pain 8. Hypokalemia 9. Hypomagnesemia 10. Leukocytosis 11. Macrocytosis 12. Anemia 13. Heme positive stools 14. Hypothermia Pt will be admitted to [facility] level of care. She has received 12 mg of IV morphine and 1.5 mg IV lorazepam overnight and is bipap dependent. Will plan to liberate her from BIPAP after admission to the floor. Will continue IV morphine/lorazepam as needed. She does not wish to pursue diagnostics or curative treatments at this time. She is requiring suctioning fairly frequently. Therefore atropine will be ordered. Unfortunately, in the setting of likely demand ischemia/NSTEMI, this could worsen her chest pain if she develops tachycardia. Will monitor closely for adverse sxs. If she develops anginal sxs, will d/c atropine. She was noted to have melenic stool in the ED. This has not recurred. Given her goals of care, no further intervention being pursued at this time. Her hypothermia resolved w/use of a kat hugger in the ED. This will be d/c'd upon admission to the floor. Lactate was negative. No concern for sepsis. As above, goals of admission are aggressive management of pain/dyspnea. Discussed plan of care at bedside w/pt, her dtr, her sister, nephew, and niece. They are all in agreement.
[2022-07-12] MEDS ORDERED: MORPHINE INJ 100 MG in SODIUM CHLORIDE 0.9% 100ML 90 ML IV SCH (21:00)
[2022-07-13] MEDS: MORPHINE 2 MG/ML CARPUJECT IVP PRN ×2 (09:48→20:13)
[2022-07-13] MEDS: LORazepam 2 MG/ML VIAL IVP PRN ×2 (10:59→22:56)
--- NOTE | 2022-07-13 12:02 | PROVIDER PROGRESS NOTE ---
Subjective - Prog Note Date Prog Note Date: 07/13/22 - Subjective Subjective: 66 yo F w/COPD, chronic hypoxic resp fail. and HCM admitted to [facility] level of care yesterday d/t resp failure and dyspnea. Family notes she transitioned off of BiPAP quite well. She has been a bit more uncomfortable today. Nephew notes that her respirations appear a bit increased. Family note she seems less comfortable overall today. She yells out in pain w/any repositioning. They feel she was more comfortable when she was receiving lorazepam more frequently. Pt has woken up a few times but has generally been sleeping this am. She briefly opens her eyes for me but is noncommunicative. Objective - Vital Signs/Intake & Output Reviewed Vital Signs: Yes Intake & Output: Intake & Output 07/10/22 07/11/22 07/12/22 07/13/22 23:59 23:59 23:59 23:59 Intake Total 4.792 Output Total 25 150 Balance -20.208 -150 - Objective General Appearance: positive: Other (Ill appearing middle aged female, intermittent brow furrowing and fidgeting) Respiratory: positive: Other (diminished, but clear) Cardiovascular: positive: No murmur, No gallop, Tachycardia Abdomen: positive: Non-tender, No organomegaly, Nml bowel sounds, No distention Extremities: positive: No pedal edema Assessment/Plan - Problem List (1) Acute and chronic respiratory failure with hypoxia Impression: Pt transitioned off of BiPAP overnight and has been on nasal cannula O2. Symptoms have overall been fairly well controlled on morphine 2.5 mg/hr. However, this am, she is having more dyspnea/tachypnea. Will increase morphine infusion to 3mg/hr. Continue NC O2 for comfort. She is beginning to have intermittent wet breath sounds. She remains GIP appropriate for mgmt of dyspnea/pain. (2) Congestive heart failure Impression: Pt is more tachycardic today. She is not having any rales on exam. No significant edema noted today. No chest pain. Qualifiers: Heart failure type: unspecified Heart failure chronicity: acute Qualified Code(s): I50.9 - Heart failure, unspecified (3) Anxiety Impression: Will schedule lorazepam 1 mg I q4h to help manage her agitation/anxiety.
[2022-07-13] MEDS: LORazepam 2 MG/ML VIAL IVP SCH ×3 (13:06→20:13)
[2022-07-13] MEDS: MORPHINE INJ 100 MG in SODIUM CHLORIDE 0.9% 100ML 90 ML IV SCH ×2 (13:08→16:43)
[2022-07-14] MEDS: LORazepam 2 MG/ML VIAL IVP SCH ×6 (00:24→21:51)
[2022-07-14] MEDS ORDERED: MORPHINE INJ 100 MG in SODIUM CHLORIDE 0.9% 100ML 90 ML IV SCH (10:46)
--- NOTE | 2022-07-14 11:09 | PROVIDER PROGRESS NOTE ---
Progress Note 14 Jul 2022 Hospice Physician Progress Note 66 yo female on GIP status. Presented to ED in respiratory distress, required BiPap. Declined transfer to higher level of care. Requested comfort measures. When family arrived Hospice Consult done and plan for GIP care with weaning off BiPap and goal of comfort with expectation of . Son and daughter spent night, described as "rough". Pt moaned and groaned, sounded wet. PRN meds requested but none given. Pt remains on morphine infusion and q4h lorazepam. Family adamant they want patient as comfortable as possible. Eyes have not opened, no oral intake, no speech in last 24hrs Pt unresponsive to voice/touch. Pulse 90. Resp 12-16, occasional pause. Decreased respiration at bases. Few upper airway noisy sounds.Hands warm but cyanotic. Occ moan/groan when hands/feet moved. Imp--Pt appears to be imminently dying. Still somewhat uncomfortable, especially per family. \\ Plan--Patient remains eligible for GIP status. Increase MS infusion to 4mg/h. Family encouraged to contact hospice if any concern that pt is uncomfortable. Larissa [facility]
[2022-07-14] MEDS: LORazepam 2 MG/ML VIAL IVP PRN ×2 (14:14→16:20)
[2022-07-15] MEDS: LORazepam 2 MG/ML VIAL IVP SCH ×5 (00:39→17:13)
[2022-07-15 08:12] VITALS: BP 139/72
[2022-07-15] MEDS: MORPHINE 2 MG/ML CARPUJECT IVP PRN ×4 (08:46→17:07)
[2022-07-15] MEDS ORDERED: MORPHINE 2 MG/ML CARPUJECT IVP PRN (09:00)
[2022-07-15] MEDS ORDERED: MORPHINE INJ 100 MG in SODIUM CHLORIDE 0.9% 100ML 90 ML IV SCH (09:05)
--- NOTE | 2022-07-15 09:14 | PROVIDER PROGRESS NOTE ---
Progress Note 15 July 2022 Hospice physician progress note 66-year-old female status post admission for respiratory arrest and initial use of BiPAP as hospice GIP patient. She was weaned off BiPAP but remains hypoxic requiring oxygen and unresponsive. Has intermittent episodes of groaning in mild respiratory distress. She is maintained on morphine infusion which has been gradually titrated upward and seems to be keeping her reasonably comfortable along with scheduled lorazepam. Son and daughter present in room. States she was fairly comfortable yesterday but had some difficulty during night with intermittent episodes of moaning and at 1 point time some respiratory difficulty. She was not given as needed medications for this. PEpatient unresponsive to voice or touch. Intermittent soft moaning's. Pulses regular at 120. Respiratory rate varies between 8 and 12. Does seem to moan more if turned or repositioned. Breath sounds diminished especially at bases but does not sound particularly wet. Hands and feet are warm but still somewhat cyanotic. Impressionpatient continues to decline evidenced by now increasing tachycardia and variable respiratory rate but also at times still seems quite uncomfortable. Planincrease morphine infusion to 5 mg daily. Discussion with medical surgical nursing staff about importance of giving as needed medications if patient appears uncomfortable or family is reporting patient discomfort. Have simplified the as needed morphine orders discontinuing a confusing order and simply giving 4 mg as needed every 30 minutes as needed for acute discomfort. We will continue scheduled lorazepam. Family questions answered and they are very appreciative of patient care.
[2022-07-15] MEDS: LORazepam 2 MG/ML VIAL IVP PRN ×2 (14:47→17:07)
--- NOTE | 2022-07-15 20:12 | MISCELLANEOUS PROVIDER NOTE ---
Miscellaneous Provider Note - - Note: Pt is admitted to the medical floor on the hospice service. Noted to be by staff at 194. I was asked by Rail Doweling Machine Operator to pronounce the patient as no other physician in hospital. Pt is unresponsive. No cardiac activity noted on exam. No respirations. Pupils non reactive. She is a DNR/DNI. No family present. Time of 1945
--- NOTE | 2022-07-16 11:38 | PROVIDER PROGRESS NOTE ---
Progress Note 16 July 2022 Discharge/ summary note Date of admission 12 July 2022 Date of 15 July 2022 Final diagnosis 1) acute on chronic respiratory failure 2) Chronic Obstructive Pulmonary Disease 3) Chronic congestive heart failure, ejection fraction preserved with acute exacerbation 4) Hypertrophic cardiomyopathy 5) Severe mitral stenosis 6) Elevated troponin/Chest Pain consistent with NSTEMI 7) Electrolyte imbalance 8) Chronic Tobacco Use 9) Macrocytic anemia 10) Alcohol use disorder [id number] female who presented to the emergency department after neighbor found her in acute respiratory distress. She required BiPAP for stabilization in the emergency room as well as other diagnoses noted above. She was being prepared for transport to outside hospital when patient stabilized enough to make it very clear she did not wish to do so and wanted comfort measures. Family reported she had been giving things away and stating that she did not want to pursue further medical care. Hospitalist was consulted but because patient now desired comfort measures felt she was not appropriate for admission. Patient remained in the emergency department until family arrived the following day when hospice consult was obtained and after extensive discussion was admitted to hospice [facility] for comfort care and weaning off BiPAP. Past medical historyas noted in discharge diagnoses. Patient hospitalized February 06 at this facility with respiratory failure and exacerbation of heart failure. At that time confirmed to have severe mitral stenosis, hypertrophic cardiomyopathy, preserved ejection fraction but with severe pressure gradients across mitral valve. Social history family reports patient had been a longtime smoker with significant abuse of alcohol. Recently living with friends, had been giving away her personal items and stating that she no longer wished to live. Had raised the question of DWD. Had made it very clear she did not want further aggressive interventions. Medicationsnot clear that patient had been using any medications recently other than oxygen when she was discharged from the hospital. Hospital coursepatient was treated with morphine and lorazepam to be kept comfortable. She was weaned off BiPAP without difficulty but remained mildly hypoxic even with supplemental oxygen. She was minimally responsive with only mumbled words for the first day. She did not take any p.o. fluids or food. By second hospital day she was unresponsive to verbal or touch stimuli but would mo an and groan when turned and repositioned. Medications were titrated appropriately to keep her comfortable as was family's request. Patient peacefully late evening of July 15. Caroline Briones MD [facility] Hospice Physician [facility]
== END 2022-07-15 19:45 | disposition expired | DRG 189 ==
LOC: MS2 16:00
PROVIDERS: ADMIT Family Medicine; ATTEND Family Medicine
DX: J96.01 Acute respiratory failure with hypoxia (principal); I50.33 Acute on chronic diastolic (congestive) heart failure; I21.4 Non-ST elevation (NSTEMI) myocardial infarction; I42.2 Other hypertrophic cardiomyopathy; J44.9 Chronic obstructive pulmonary disease, unspecified; I05.0 Rheumatic mitral stenosis; E87.8 Other disorders of electrolyte and fluid balance, not elsewhere classified; D53.9 Nutritional anemia, unspecified; F10.10 Alcohol abuse, uncomplicated; F17.210 Nicotine dependence, cigarettes, uncomplicated; F41.9 Anxiety disorder, unspecified; E87.6 Hypokalemia; E83.42 Hypomagnesemia; R19.5 Other fecal abnormalities; Z51.5 Encounter for palliative care; Z66 Do not resuscitate; Z79.899 Other long term (current) drug therapy; Z90.710 Acquired absence of both cervix and uterus
CPT/HCPCS: J2060 ×4